=== PATIENT | female | born 1995 | race Hispanic/Latino ===

== ENCOUNTER 2020-08-18 15:15 | Emergency (ER) | payer MEDICAID ==
[2020-08-18 16:42] LABS: BASOPHILS % (AUTO) 0.4 % (0.0-5.0); EOSINOPHILS % (AUTO) 1.8 % (0.0-8.0); HEMATOCRIT 35.5 % (36-48); LYMPHOCYTES % (AUTO) 20.5 % (21.0-51.0); MEAN CORPUSCULAR HEMOGLOBIN 28.6 pg (27.0-33.0); MEAN CORPUSCULAR HGB CONC 33.2 g/dL (32.0-36.0); MONOCYTES % (AUTO) 8.1 % (3.0-13.0); NEUTROPHILS % (AUTO) 68.9 % (40.0-77.0); PLATELET COUNT (AUTO) 341 K/uL (130-400); RED BLOOD CELL COUNT(AUTO) 4.13 MIL/uL (4.00-5.50); RED CELL DISTRIBUTION WIDTH 12.9 % (11.0-15.5); WHITE BLOOD COUNT (AUTO) 15.4 K/uL (4.8-10.8)
[2020-08-18 16:54] LABS: CREATININE 0.6 mg/dL (0.5-1.5); POTASSIUM 3.8 mmol/L (3.5-5.1)
[2020-08-18 17:20] LABS: ALBUMIN 3.3 g/dL (3.5-5.0); BILIRUBIN,TOTAL 0.1 mg/dL (0.2-1.0); TOTAL PROTEIN, SERUM 7.4 g/dL (6.0-8.3)
== END 2020-08-18 17:08 | disposition home or self-care (01) ==
LOC: EDH 15:15
DX: O20.0 Threatened abortion (principal); Z3A.08 8 weeks gestation of pregnancy
CPT/HCPCS: 36415; 76801; 80053; 84702; 85025; 86850; 86900; 86901

== ENCOUNTER 2021-12-18 23:46 | Emergency (ER) | payer MEDICAID ==
[~2021-12-18] VITALS: Ht 154.9 cm; Wt 72.6 kg
[2021-12-19 00:38] LABS: BASOPHILS % (AUTO) 0.5 % (0.0-5.0); EOSINOPHILS % (AUTO) 3.1 % (0.0-8.0); HEMATOCRIT 43.9 % (36-48); MEAN CORPUSCULAR HEMOGLOBIN 29.3 pg (27.0-33.0); MEAN CORPUSCULAR HGB CONC 33.9 g/dL (32.0-36.0); MEAN CORPUSCULAR VOLUME 86.4 fL (79-99); MONOCYTES % (AUTO) 5.7 % (3.0-13.0); NEUTROPHILS % (AUTO) 65.4 % (40.0-77.0); PLATELET COUNT (AUTO) 411 K/uL (130-400); RED BLOOD CELL COUNT(AUTO) 5.08 MIL/uL (4.00-5.50); RED CELL DISTRIBUTION WIDTH 12.8 % (11.0-15.5); WHITE BLOOD COUNT (AUTO) 18.7 K/uL (4.8-10.8)
[2021-12-19 00:38] LABS: APPEARANCE,URINE CLEAR (CLEAR); BILIRUBIN,URINE SMALL (NEGATIVE); COLOR,URINE YELLOW (YELLOW); GLUCOSE, URINE (UA) NEGATIVE (NEGATIVE); KETONES,URINE 40 mg/dL (NEGATIVE); LEUKOCYTE ESTERASE ,URINE MODERATE (NEGATIVE); NITRATE,URINE NEGATIVE (NEGATIVE); OCCULT BLOOD,URINE MODERATE (NEGATIVE); PROTEIN,URINE 30 mg/dL (NEGATIVE)
[2021-12-19 00:41] LABS: CREATININE 0.8 mg/dL (0.5-1.5); POTASSIUM 3.5 mmol/L (3.5-5.1)
[2021-12-19 00:46] LABS: ALBUMIN 4.4 g/dL (3.5-5.0); TOTAL PROTEIN, SERUM 8.8 g/dL (6.0-8.3)
[2021-12-19 00:57] LABS: BACTERIA,URINE Moderate /HPF (None Seen); MUCUS,URINE Moderate LPF (None Seen); RBC,URINE 26-50 /HPF (0-1); TRICHOMONAS,URINE Many /LPF (None Seen); WBC,URINE TNTC /HPF (0-1)
[2021-12-19] MEDS ORDERED: 0.9%NACL 1000ML 1,000 ML IV ONE (01:00)
[2021-12-19] MEDS ORDERED: FAMOTIDINE 20MG VIAL IV ONE (01:00)
[2021-12-19] MEDS ORDERED: ONDANSETRON 4MG INJ IVP ONE (01:00)
[2021-12-19] MEDS ORDERED: CEFTRIAXONE 1G VIAL ONE (01:16)
[2021-12-19] MEDS ORDERED: CEFTRIAXONE 1G VIAL IVP ONE (01:30)
[2021-12-19] MEDS ORDERED: DOCUSATE SODIUM 100 MG CAP PO ONE (02:45)
[2021-12-19] MEDS ORDERED: DOXYCYCLINE HYCLATE 100 MG TABLET PO SCH (04:00)
[2021-12-19] MEDS ORDERED: ONDA4TAB10 PO (06:19)
[2021-12-19] MEDS ORDERED: DOXY-252 PO (06:19)
[2021-12-19] MEDS ORDERED: FAMO-136 PO (06:19)
[2021-12-19] MEDS ORDERED: METR-172 PO (06:19)
[2021-12-19] MEDS ORDERED: CORTSOL AD (06:29)
[2021-12-19] MEDS ORDERED: NEOMYCIN/POLYMYXIN/HC OTIC SUSP 10ML BOTTLE AD SCH (06:30)
[2021-12-19 06:37] VITALS: BP 118/78
== END 2021-12-19 06:46 | disposition home or self-care (01) ==
LOC: EDH 23:46
DX: N73.9 Female pelvic inflammatory disease, unspecified (principal); N76.0 Acute vaginitis; A59.01 Trichomonal vulvovaginitis; H60.91 Unspecified otitis externa, right ear; R10.13 Epigastric pain
CPT/HCPCS: 99284; 80053; 83690; 85025; 87210; 87088; 87797; 87486; 81001; 81025; 36415; 76705; 96374; 96375; 76856; J7030; J0696; J2405; S0028; J3490

== ENCOUNTER 2023-02-13 14:38 | Emergency (ER) | payer MEDICAID ==
[~2023-02-13] VITALS: Ht 154.9 cm; Wt 72.6 kg
[~2023-02-13 14:38] MED LIST: CORTSOL AD; DOXY-252 PO; FAMO-136 PO; METR-172 PO; ONDA4TAB10 PO
[2023-02-13 15:28] LABS: BASOPHILS # (AUTO) 0.04 K/uL (0.00-0.20); BASOPHILS % (AUTO) 0.4 % (0.0-5.0); EOSINOPHILS # (AUTO) 0.23 K/uL (0.00-0.70); HEMATOCRIT 38.2 % (36-48); IMMATURE GRANULOCYTE ABSOLUTE 0.07 K/uL (0-1); LYMPHOCYTES # (AUTO) 2.9 K/uL (1.0-4.8); LYMPHOCYTES % (AUTO) 25.2 % (21.0-51.0); MEAN CORPUSCULAR VOLUME 84.9 fL (79-99); MONOCYTES # (AUTO) 0.7 K/uL (0.1-1.0); MONOCYTES % (AUTO) 6.1 % (3.0-13.0); NEUTROPHILS # (AUTO) 7.4 K/uL (1.8-7.7); NEUTROPHILS % (AUTO) 65.7 % (40.0-77.0); PLATELET COUNT (AUTO) 361 K/uL (130-400); RED CELL DISTRIBUTION WIDTH 13.9 % (11.0-15.5); WHITE BLOOD COUNT (AUTO) 11.3 K/uL (4.8-10.8)
[2023-02-13 15:30] LABS: APPEARANCE,URINE TURBID (CLEAR); BILIRUBIN,URINE NEGATIVE (NEGATIVE); COLOR,URINE YELLOW (YELLOW); GLUCOSE, URINE (UA) NEGATIVE (NEGATIVE); KETONES,URINE NEGATIVE (NEGATIVE); LEUKOCYTE ESTERASE ,URINE 500 Leu/uL (NEGATIVE); NITRATE,URINE NEGATIVE (NEGATIVE); OCCULT BLOOD,URINE LARGE (NEGATIVE); PH,URINE 5.5 (5.0-8.0); PROTEIN,URINE 70 mg/dL (NEGATIVE); UROBILINOGEN,URINE 0.2 mg/dL (0.2-1.0)
[2023-02-13 15:31] LABS: ADD UA MICROSCOPIC YES
[2023-02-13 15:37] LABS: BACTERIA,URINE FEW /HPF (None Seen); MUCUS,URINE FEW LPF (None Seen); RBC,URINE 51-100 /HPF (0-1); SQUAMOUS EPITHELIAL CELL,UR MOD /HPF (0-2); UNCLASSIFIED CRYSTAL 13 /HPF (None Seen); WBC CLUMP FEW /HPF (0-1); WBC,URINE 26-50 /HPF (0-1)
[2023-02-13 15:39] LABS: CREATININE 0.7 mg/dL (0.5-1.5); POTASSIUM 3.7 mmol/L (3.5-5.1)
[2023-02-13 15:39] LABS: HCG,QUALITATIVE URINE NEGATIVE (NEGATIVE)
[2023-02-13 15:44] LABS: ALBUMIN 3.5 g/dL (3.5-5.0); BILIRUBIN,TOTAL 0.3 mg/dL (0.2-1.0); TOTAL PROTEIN, SERUM 7.7 g/dL (6.0-8.3)
[2023-02-13] MEDS ORDERED: 0.9%NACL 1000ML 1,000 ML IV ONE (18:00)
[2023-02-13] MEDS ORDERED: KETOROLAC 15MG/ML VIAL (15MG/ML) IV ONE (18:00)
[2023-02-13 18:30] VITALS: BP 127/84; PULSE 89; RESP 18; O2SAT 99
== END 2023-02-13 20:30 | disposition home or self-care (01) ==
LOC: EDH 14:38
DX: R10.9 Unspecified abdominal pain (principal)
CPT/HCPCS: 99285; 74176; 96374; 96361; 80053; 83690; 85025; 87088; 81001; 81025; 36415; 74021; J7030; J1885

== ENCOUNTER 2025-02-28 23:34 | Emergency (ER) | payer OTHER, MEDICARE, MEDICAID ==
[~2025-02-28] VITALS: Ht 154.9 cm; Wt 76.7 kg
[~2025-02-28 23:34] MED LIST changes: +ONDA-243 PO; -ONDA4TAB10 PO
--- NOTE | 2025-03-01 00:39 | NUR ---
ASSUMED PT CARE AT THIS TIME
[2025-03-01 00:52] LABS: IMMATURE GRANULOCYTE ABSOLUTE 0.03 K/uL (0-1); NUCLEATED RED BLOOD CELLS 0.0 % (0.0-0.19); PLATELET COUNT (AUTO) 382 K/uL (130-400); RED BLOOD CELL COUNT(AUTO) 4.25 MIL/uL (4.00-5.50); RED CELL DISTRIBUTION WIDTH 14.6 % (11.0-15.5); WHITE BLOOD COUNT (AUTO) 13.5 K/uL (4.8-10.8)
[2025-03-01 01:05] LABS: CREATININE 0.6 mg/dL (0.5-1.0); GLOMERULAR FILTR. RATE CALC 125.0 mL/min (>90); GLUCOSE,RANDOM 95.0 mg/dL (70-105); SODIUM SERUM 135.0 mmol/L (136-145); UREA NITROGEN, BLOOD 9.0 mg/dL (7-18)
[2025-03-01 01:06] LABS: INR 1.04 (0.85-1.15)
[2025-03-01 02:10] LABS: APPEARANCE,URINE CLEAR (CLEAR); GLUCOSE, URINE (UA) NEGATIVE (NEGATIVE); LEUKOCYTE ESTERASE ,URINE NEGATIVE Leu/uL (NEGATIVE); NITRATE,URINE NEGATIVE (NEGATIVE); OCCULT BLOOD,URINE NEGATIVE (NEGATIVE)
[2025-03-01 02:12] LABS: SQUAMOUS EPITHELIAL CELL,UR RARE /HPF (0-2)
[2025-03-01 02:13] LABS: HCG,QUALITATIVE URINE NEGATIVE (NEGATIVE)
[2025-03-01] MEDS: CYCLOBENZAPRINE HCL 10 MG TABLET PO ONE (02:36)
[2025-03-01] MEDS ORDERED: MELO-108 PO (03:03)
[2025-03-01] MEDS ORDERED: METH-812 PO (03:03)
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
[2025-03-01 03:21] VITALS: BP 112/60; PULSE 86; RESP 16; TEMP 98.2; O2SAT 100
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
== END 2025-03-01 03:25 | disposition home or self-care (01) ==
LOC: EDH 23:34
DX: M62.830 Muscle spasm of back (principal); Z79.899 Other long term (current) drug therapy; Z79.01 Long term (current) use of anticoagulants; V89.2XXA Person injured in unspecified motor-vehicle accident, traffic, initial encounter; Y93.89 Activity, other specified; Y92.89 Other specified places as the place of occurrence of the external cause; Y99.8 Other external cause status
CPT/HCPCS: 99284; 80048; 84703; 85025; 85610; 85730; 81001; 81025; 36415; 96374; 72040; J1885